=== PATIENT | female | born 1960 | race Caucasian/White ===

== ENCOUNTER 2023-05-29 12:29 | Outpatient (CLI) | payer OTHER, SELFPAY ==
--- NOTE | ~2023-05-29 | XR_ITS ---
XR hip RT min 2V 05/29/2023 13:35 Indication: Right hip pain Procedure: 2 views right hip Comparison: No prior studies for comparison. Findings: No fracture, subluxation or dislocation. No significant soft tissue abnormality. No foreign bodies. Sacral foramen are symmetric. There is mild degenerative change at the pubic symphysis. Impression: 1: No significant bone or joint abnormality. Reviewed, dictated and finalized at location B. [employer] MANAGER Impression: 1: No significant bone or joint abnormality.
--- NOTE | ~2023-05-29 | XR_ITS ---
EXAMINATION: XR lumbar spine min 4V DATE: 05/29/2023 13:35 INDICATION: Pain in unspecified hip. TECHNIQUE: 5 views of lumbar spine were obtained. COMPARISON: None. FINDINGS: There is 3 mm retrolisthesis of L1 on L2 and L2 on L3. There is 16 degrees levoscoliosis of thoracolumbar spine. Vertebral body heights are normal. There is severely decreased disc height at L 1-L2 and L2-L3. There is multilevel facet joint osteoarthritis, severe bilaterally at L4-L5 and L5-S1 . IMPRESSION: 1. Severe lumbar spondylosis. 2. Thoracolumbar levoscoliosis. Reviewed, dictated and finalized at location E. S MANAGER
--- NOTE | ~2023-05-29 | XR_ITS ---
EXAMINATION: XR sacroiliac joints min 3V DATE: 05/29/2023 13:35 INDICATION: Pain in unspecified hip. TECHNIQUE: 3 views of the sacroiliac joints were obtained. COMPARISON: None. FINDINGS: There is lumbar levoscoliosis. No fracture. There is severe facet joint osteoarthritis in l ower lumbar spine. There is mild osteoarthritis of the sacroiliac joints. IMPRESSION: 1. Mild osteoarthritis of the sacroiliac joints. Reviewed, dictated and finalized at location E. [facility]
== END 2023-05-29 12:30 ==
LOC: MICIMG 12:33
PROVIDERS: PCP Internal Medicine; Visit Provider Internal Medicine
DX: M25.551 Pain in right hip (principal); M54.50 Low back pain, unspecified; M16.0 Bilateral primary osteoarthritis of hip; M53.3 Sacrococcygeal disorders, not elsewhere classified
CPT/HCPCS: 72110; 72202; 73502